=== PATIENT | female | born 1990 | race Caucasian/White ===

== ENCOUNTER → 2023-11-19 14:40 | Outpatient (CLI) | payer OTHER, SELFPAY ==
--- NOTE | 2023-11-24 15:44 | DIET.OUTPTC ---
Dietary Outpatient Consultation Note Consultation Date: 11/19/2023 Assessment: 33 y F referred to dietitian for morbid obesity. Nguyen reports goals of wanting to find sustainable eating patterns to support weight loss through learning about nutrition. Has struggled with weight since young adult. Has hx of attempting weight loss with fad diets (keto, low carb, etc) without longterm success. In May 2023 she stopped taking Wellbutrin, noted weight gain after despite working on reducing sugar sweetened beverages, watching calorie intake and portion sizes, and adequate exercise since end of April 2023. Does not want to take medication for weight loss. Has very stressful job, is changing jobs. is going to be deployed, has 2 young kids. Wants to work on meal planning and meal prepping for the week during this time to avoid resorting to fast foods for dinner while he is gone. Allergies/Sensitivities: Peanuts and tree nuts- anaphylaxis type symptoms, soy - GI distress, grapes and pitted fruits - itching, swollen face; cooked fruits and vegs are tolerated better Reports sudden food aversions in last year (i.e. eliminating christianson because no desire to eat it suddenly, when had previously consumed it) Diet recall: Work days: B: coffee or tea, 2 boiled eggs L: leftovers or snack from office (crackers, packaged item) D: meat, carb, small portion of veg (last night breakfast burritos w/ egg, sausage, potatoes, some salsa) Weekend: just has snack at noon and dinner Drinks: at least 40 oz of water/day Ht: 5 ft 4 in (162.6 cm) Wt: 256 lb and 2 oz (116.4 kg) BMI: 43.9 Nutrition Diagnosis: Nutrition r/t knowledge deficit r/t limited previous educ as evidenced by assessment Interventions: 1. Recc: Consistent meals and snacks prepared at home and modeled off the plate method -Provided educ on: plate method, portion sizing with hands/items, macros, label reading, meal prep -Use of [place] and goal setting Goals: 1. Meal prep on Sundays: determine barriers, problems, pros and cons 2. Double vegetable serving at dinner/include vegetable at dinner by using extra bag of frozen or canned vegetables 3. Consistent protein at lunch by packing away leftovers in container evening before Monitoring/Evaluations: diet recall, goals, weight, f/u in 1 month Electronically Signed by: Melinda Billy 11/24/23 15:44 Clinical Dietitian [address] [id number]
== END ==
PROVIDERS: PCP Family Medicine; Referring Provider Family Medicine
DX: E66.01 Morbid (severe) obesity due to excess calories (principal); Z68.41 Body mass index [BMI] 40.0-44.9, adult; Z71.3 Dietary counseling and surveillance
CPT/HCPCS: 97802

== ENCOUNTER → 2024-05-12 08:20 | Outpatient (CLI) | payer OTHER, SELFPAY ==
[2024-05-12 09:16] LABS: Hemoglobin A1C% w Est Avg Glu 5.2 % (4.0-6.0)
[2024-05-12 09:29] LABS: Cholesterol 188 mg/dL (140-199); HDL Cholesterol 46 mg/dL (40-60); LDL Cholesterol Calculated 111 mg/dL (<100); Triglycerides 156 mg/dL (35-150)
== END ==
PROVIDERS: PCP Family Medicine; Referring Provider Family Medicine; Visit Provider Family Medicine
DX: R42 Dizziness and giddiness (principal); Z13.1 Encounter for screening for diabetes mellitus; Z13.220 Encounter for screening for lipoid disorders
CPT/HCPCS: 36415; 80061; 83036

== ENCOUNTER → 2024-06-21 15:00 | Outpatient (CLI) | payer OTHER, SELFPAY | LOC: CAR 15:01 | PROVIDERS: PCP Family Medicine; Referring Provider Family Medicine; Visit Provider Family Medicine | DX: R55 Syncope and collapse (principal); I48.91 Unspecified atrial fibrillation; I48.92 Unspecified atrial flutter; R42 Dizziness and giddiness | CPT/HCPCS: 93246 ==